=== PATIENT | female | born 1975 | race Native Hawaiian/Other Pacific Islander ===

== ENCOUNTER → 2017-05-15 | Outpatient (CLI) | payer OTHER ==
[~2017-05-15] MED LIST: APAP500; IBUPROFEN 600600 M1 PO; LANSINOH 60 GM60 GM; LORTAB 5 MG/5001 TA1 PO; NORCO 5-325 TA1 EACH; SENOKOT-S1 TA1
== END ==
LOC: RAD 14:44
DX: Z12.31 Encounter for screening mammogram for malignant neoplasm of breast (principal)

== ENCOUNTER → 2018-08-15 | Outpatient (CLI) | payer OTHER | LOC: RAD 08:59 | DX: Z12.31 Encounter for screening mammogram for malignant neoplasm of breast (principal) ==

== ENCOUNTER → 2019-10-07 | Outpatient (CLI) | payer OTHER | LOC: BC 08:46 | DX: Z12.31 Encounter for screening mammogram for malignant neoplasm of breast (principal) ==

== ENCOUNTER → 2020-03-18 | Outpatient (CLI) | payer OTHER | LOC: ULTRA 09:21 | PROVIDERS: ATTEND Family Medicine | DX: K80.80 Other cholelithiasis without obstruction (principal); K76.89 Other specified diseases of liver ==

== ENCOUNTER → 2020-04-18 | Outpatient (CLI) | payer OTHER ==
[~2020-04-18] MED LIST changes: +HAIR SKIN NAIL1 EACH PO; +LOSARTAN POTASS50 MG PO; +MULTIVITAMINS PO; +PROBIOTIC1 EAC7 PO; +TURMERIC500 M2 PO; +VITAMIN B-121000 MC2 PO
== END ==
LOC: LAB 11:38
PROVIDERS: ATTEND Surgery
DX: Z01.812 Encounter for preprocedural laboratory examination (principal); Z20.828 Contact with and (suspected) exposure to other viral communicable diseases

== ENCOUNTER 2020-04-22 11:11 | Day surgery (SDC) | payer OTHER ==
[~2020-04-22] VITALS: Ht 152.4 cm; Wt 77.1 kg
--- NOTE | ~2020-04-22 | O ---
[facility] [place] [address] OPERATIVE REPORT Name: ERICA LEMON Room #: DEP [facility]..#: [id number] Admission: 04/22/20 Attend Phys: Guille Delarosa, Discharge: 04/22/20 Date of : 75 Report #: [id number] THIS REPORT FOR: cc: Ramón Sawyer MD, Alexander G. MD Patterson,Guille Wolfe MD ~ CC: Ramón Delarosa DATE OF SERVICE: 04/22/2020 PREOPERATIVE DIAGNOSIS: Symptomatic cholelithiasis. POSTOPERATIVE DIAGNOSIS: Symptomatic cholelithiasis. OPERATION: Laparoscopic cholecystectomy. SURGEON: Guille Delarosa MD. ANESTHESIA: General. ESTIMATED BLOOD LOSS: Minimal. SPECIMEN: Gallbladder. DESCRIPTION OF PROCEDURE: After informed consent was obtained, the patient was brought to the operating room and placed supine. SCDs were placed and working, preoperative antibiotics were administered, general anesthesia was induced. The abdomen was prepped and draped in the usual sterile fashion. A 10 mm incision was made below the umbilicus. Fascia was incised and a trocar was placed. Pneumoperitoneum was established. Three right upper quadrant 5-mm ports were placed. The patient was placed in the reverse Trendelenburg position. The gallbladder was grasped and retracted cephalad. Infundibulum was grasped and retracted laterally. I dissected out the cystic duct and cystic artery. Cystic plate was fully identified. The cystic duct and artery were clipped and ligated leaving 2 clips on the remaining duct and 1 on the remaining artery. Gallbladder was then taken off the liver bed with electrocautery. It was placed into an Endopouch and removed. The fascia was then closed with a [id number] 0 Vicryl. Skin was closed with 4-0 Monocryl. Incisions were sealed with Dermabond. COMPLICATIONS: None. [facility] [address] [place] [address] OPERATIVE REPORT Name: ERICA LEMON Room #: DEP [facility]#: [id number] Admission: 04/22/20 Attend Phys: Guille Delarosa, Discharge: 04/22/20 Date of : 75 Report #: [id number] DISPOSITION: The patient was taken to recovery in satisfactory condition. By: 1559 1649 Guille Delarosa MD /abdon
[2020-04-22 12:44] VITALS: BP 145/76
--- NOTE | 2020-04-22 14:25 | EKG ---
[facility] [place] [address] ELECTROCARDIOGRAM REPORT Name: ERICA LEMON Room #: 150-4 [facility] M.R.#: [id number] Admission: 04/22/20 Attend Phys: Guille Delarosa, Discharge: Date of : 75 Report #: [id number] THIS REPORT FOR: cc: Ramón Sawyer MD, Alexander G. MD Santiago, Patrick MD [facility] ~ THIS REPORT FOR: //name// [facility] Test Date: 2020-04-22 Test Time: 12:05:12 Pat Name: ERICA LEMON Department: Room: 150 4 Gender: F Chief Client Officer: FLORY : 1975 Requested By: Ruthie Delarosa Order Number: [id number] MD: Robinson Prasad Measurements Intervals [place] Rate: 62 P: 60 ID: 160 QRS: 8 QRSD: 91 T: 33 QT: 401 QTc: 408 Interpretive Statements Sinus rhythm No previous ECG available for comparison Electronically Signed On 04-22-2020 14:24:54 DENTAL ASSISTING INSTRUCTOR by Robinson Prasad [email or web address] <ELECTRONICALLY SIGNED> By: Robinson Prasad MD, FACC 04/22/20 1424 1205 1205 Robinson Prasad MD, [facility] /EPI
[2020-04-22 14:30] LABS: ALBUMIN 3.2 g/dL (3.4-5.0); CALCIUM 8.7 mg/dL (8.5-10.1); CREATININE 0.8 mg/dL (0.6-1.0); POTASSIUM 3.5 mmol/L (3.5-5.1); TOTAL BILIRUBIN 0.3 mg/dL (0.2-1.0); TOTAL PROTEIN 6.3 g/dL (6.4-8.2)
[2020-04-22] MEDS ORDERED: NORCO 10-325 T1 EACH PO (15:04)
[2020-04-22 15:19] VITALS: BP 145/76
--- NOTE | 2020-04-26 17:06 | PATH ---
[facility] [address] [place] [address] PATHOLOGY RPT PROCEDURE Name: ERICA LEMON Room #: DEP [facility] M.R.#: [id number] Admission: 04/22/20 Date of : 75 Discharge: 04/22/20 Report #: [id number] Path Case #: [id number] [facility] Accession Number: [id number] . 01 Material submitted: . gallbladder - GALLBLADDER . 01 Clinical history: . CALCULUS OF GALLBLADDER . 02 Diagnosis: Gallbladder, cholecystectomy: - Mild chronic cholecystitis. - Cholelithiasis. (IUV:pit 04/26/2020) QTP 04/26/2020 1431 Local . 02 Electronically signed: . Sindi Pickering MD, Pathologist NPI- [id number] . 01 Gross description: . The specimen is received in formalin, labeled "guerita [place]". Received is an intact gallbladder measuring 9.3 x 2.9 x 2.9 cm in greatest dimensions displaying a blue-milligan serosal surface. Opening the specimen reveals a velvety, bile-stained mucosa with a gallbladder wall thickness of 0.1 cm. Calculi are present displaying a bright yellow and nodular appearance, and no masses or lesions are noted grossly. Stone Operator sections, to include the proximal margin, are submitted in cassette A1. (CAA; 04/25/2020) QA/[facility] 04/25/2020 1103 Local . 02 Pathologist provided ICD-10: K80.10 . 02 CPT . 829357 Specimen Comment: A courtesy copy of this report has been sent to [phone] Specimen Comment: Report sent to Performed at: [address] [id number] MD Nathan Azevedo MD Phone: [phone] Performed at: [address] [id number] [address] [address] PATHOLOGY RPT PROCEDURE Name: ERICA LEMON Room #: DEP [facility] M.R.#: [id number] Admission: 04/22/20 Date of : 75 Discharge: 04/22/20 Report #: [id number] Path Case #: [id number] MD Sindi Pickering MD Phone: [phone]
== END 2020-04-22 16:45 | disposition home or self-care (01) ==
LOC: OR 11:11 → TBA 11:20 → OR 12:22
PROVIDERS: Family Medicine; ATTEND Surgery
DX: K80.10 Calculus of gallbladder with chronic cholecystitis without obstruction (principal); R10.11 Right upper quadrant pain; I10 Essential (primary) hypertension; Z98.890 Other specified postprocedural states; Z79.899 Other long term (current) drug therapy
CPT/HCPCS: 50010; 50101; 50411; 50555; 51489; 52265; 52266; 53307; 53312; 53314; 55245; 56462; 56525; 56526; 62110; 62900; 70005

== ENCOUNTER → 2020-10-03 | Outpatient (CLI) | payer OTHER ==
[~2020-10-03] MED LIST changes: +NORCO 10-325 T1 EACH PO
== END ==
LOC: RAD 09:59
PROVIDERS: ATTEND Obstetrics & Gynecology
DX: Z12.31 Encounter for screening mammogram for malignant neoplasm of breast (principal)

== ENCOUNTER → 2020-12-23 | Outpatient (CLI) | payer OTHER | LOC: SJCVCIMAG 09:40 | PROVIDERS: ATTEND Internal Medicine | DX: I10 Essential (primary) hypertension (principal); R00.2 Palpitations ==

== ENCOUNTER → 2021-03-17 | Outpatient (CLI) | payer OTHER | END | disposition home or self-care (01) | LOC: ULTRA 10:01 | PROVIDERS: ATTEND Family Medicine | DX: R10.84 Generalized abdominal pain (principal) ==